=== PATIENT | female | born 1995 | race Caucasian/White ===

== ENCOUNTER 2018-10-02 14:10 | Emergency (ER) | payer OTHER ==
--- NOTE | 2018-10-02 14:46 | ER Document Report ---
ED Psych Disorder / Suicide <APONTEJENNIFER - Last Filed: 10/02/18 17:11> <KATHLEEN BACH - Last Filed: 10/02/18 17:23> - General Chief Complaint: Psych Problem Stated Complaint: PSYCH EVAL Time Seen by Provider: 10/02/18 14:32 Primary Care Provider: [facility] [Outside] - Follow up as needed PRETTY RAZO FNP [Primary Care Provider] - Follow up as needed Notes: Patient is here because she says she is hearing voices and they are telling her to hurt herself. She says these voices began about 3 or 4 months ago when her sister . Sister had a history of seizures and was in the bathtub and apparently drowned oral diet in some fashion from that. Patient says that she seldom has visual hallucinations, but sometimes feels someone tapping her on her shoulder and turns and there is no one there. Patient denies any history of mental illness. Says she is not under anyone's care and has not been in the past. Her only medical problems are asthma and thyroid disorder. (KATHLEEN AVILA) Past Medical History - Social History Smoking Status: Unknown if Ever Smoked Family History: Reviewed & Not Pertinent Pulmonary Medical History: Reports: Hx Asthma Endocrine Medical History: Reports: Hx Hypothyroidism <KATHLEEN BACH - Last Filed: 10/02/18 17:23> Review of Systems <KATHLEEN BACH - Last Filed: 10/02/18 17:23> - Review of Systems Notes: REVIEW OF SYSTEMS: CONSTITUTIONAL : Denies fever. EENT: Denies eye, ear, nose or mouth or throat pain or other symptoms. CARDIOVASCULAR: Denies chest pain. RESPIRATORY: Denies cough, chest congestion, or shortness of breath. GASTROINTESTINAL: Denies abdominal pain or nausea, vomiting, or diarrhea. GENITOURINARY: Denies difficulty or painful urinating, urinary frequency, blood in urine. MUSCULOSKELETAL: Denies back or neck pain. Denies joint pain or swelling. SKIN: Denies rash or skin lesions. NEUROLOGICAL: Denies LOC or altered mental status. Denies headache. Denies sensory loss or motor deficits. ALL OTHER SYSTEMS REVIEWED AND NEGATIVE. (KATHLEEN BACH) Physical Exam - Vital signs Interpretation: Normal <KATHLEEN BACH - Last Filed: 10/02/18 17:23> - Vital signs Vitals: Temp Pulse Resp BP Pulse Ox 98.0 F 72 17 122/67 100 10/02/18 15:11 10/02/18 15:11 10/02/18 15:11 10/02/18 15:11 10/02/18 15:11 Notes: PHYSICAL EXAMINATION: GENERAL: Well-appearing, in no acute distress. HEAD: Atraumatic, normocephalic. EYES: Pupils equal round and reactive to light, extraocular movements intact. ENT: oropharynx clear without exudates. Moist mucous membranes. NECK: Normal range of motion, supple. LUNGS: Breath sounds clear and equal bilaterally. HEART: Regular rate and rhythm without murmurs. ABDOMEN: Soft, nontender. No guarding or rebound. No masses. BACK: No tenderness throughout entire back. EXTREMITIES: Normal range of motion without pain. NEUROLOGICAL: Normal speech, normal gait. Normal sensory, motor, and reflex exams. Awake, alert, and oriented x3. Cranial nerves normal. PSYCH: Patient seems to be oriented. Answers questions appropriately. Denies current hallucinations. Cooperative and pleasant. SKIN: Warm, dry, no rashes. (KATHLEEN BACH) Course - Laboratory Result Diagrams: 10/02/18 15:18 10/02/18 15:18 <JENNIFER APONTE - Last Filed: 10/02/18 17:11> - Laboratory Result Diagrams: 10/02/18 15:18 10/02/18 15:18 <KATHLEEN BACH - Last Filed: 10/02/18 17:23> - Vital Signs Vital signs: Temp Pulse Resp BP Pulse Ox 98.0 F 72 17 122/67 100 10/02/18 15:11 10/02/18 15:11 10/02/18 15:11 10/02/18 15:11 10/02/18 15:11 - Laboratory Laboratory results interpreted by me: 10/02/18 10/02/18 10/02/18 15:18 15:18 15:18 Hct 34.6 L RDW 14.5 H AST 12 L TSH 13.00 H Salicylates < 1.0 L Acetaminophen < 10 L Discharge <JENNIFER APONTE - Last Filed: 10/02/18 17:11> <KATHLEEN BACH - Last Filed: 10/02/18 17:23> - Discharge Clinical Impression: Autism, Bereavement Condition: Stable Disposition: HOME, SELF-CARE Additional Instructions: You have been evaluated both medical and behavioral health teams and been deemed appropriate for discharge. You have provided prescription for Zoloft 25 mg daily; please take as directed. You are encouraged to follow-up with outpatient mental health services in the form of therapeutic intervention and follow-up with your primary primary care provider for medication management. Have been provided a local resource list of area providers including mobile crisis contact information. DEPRESSION: Your evaluation reveals that you have mental depression. While symptoms may be vague, they often include disturbance of sleep, fatigue, loss of appetite, and general loss of interest in life. While depression may be a side effect of drugs, or a reaction to a major change in your life, many cases have no known cause. If depression is acute, and related to a major loss in your life, you can expect it to clear completely with time. If you have been depressed a long time, are prone to repeated bouts of depression or low mood, or have been thinking of suicide, get help. Depression can be treated with anti-depressant medication and counselling. Long-term depression will often take a few weeks to clear, even with appropriate medication. Follow-up care is important. SUICIDAL IDEATION: Suicidal ideation is a common medical term for thoughts about suicide, which may be as detailed as a formulated plan, without the suicidal act itself. Although most people who undergo suicidal ideation do not commit suicide, some go on to make suicide attempts. The range of suicidal ideation varies greatly from fleeting to detailed planning, role playing, and unsuccessful attempts. While thoughts about suicide are common, most people do not carry out serious actions to commit suicide. Based upon your evaluation and discussion with you, we do not believe you are currently at risk to act upon your thoughts of suicide. You have agreed to return to the Emergency Department, at any time, if you feel inclined to act upon your suicidal thoughts. FOLLOW-UP CARE: If you experience worsening or a significant change in your symptoms, notify the physician immediately or return to the Emergency Department at any time for re- evaluation. Your thyroid function is very low. You are not taking your medications. You should see your primary care provider next week and get a prescription for your thyroid medication so that she can resume taking it every day. Prescriptions: Sertraline HCl [Zoloft] 25 mg PO DAILY #14 tablet Referrals: PRETTY RAZO FNP [Primary Care Provider] - Follow up as needed [facility] [Outside] - Follow up as needed
[2018-10-02 15:42] LABS: ABSOLUTE EOSINOPHILS # (AUTO) 0.3 10^3/uL (0.0-0.6); ABSOLUTE MONOCYTES (AUTO) 0.6 10^3/uL (0.1-1.4); ABSOLUTE NEUT (AUTO) 5.6 10^3/uL (1.7-8.2); BASOPHILS % (AUTO) 0.4 % (0-2); EOSINOPHILS % (AUTO) 3.3 % (0-6); HEMATOCRIT 34.6 % (36.0-47.0); HEMOGLOBIN 12.2 g/dL (12.0-15.5); LYMPHOCYTES % (AUTO) 23.4 % (13-45); MEAN CORPUSCULAR HEMOGLOBIN 30.5 pg (27.0-33.4); MEAN CORPUSCULAR HGB CONC 35.4 g/dL (32.0-36.0); MEAN CORPUSCULAR VOLUME 86 fl (80-97); MONOCYTES % (AUTO) 7.2 % (3-13); PLATELET COUNT 448 10^3/uL (150-450); RED BLOOD COUNT 4.01 10^6/uL (3.72-5.28); RED CELL DISTRIBUTION WIDTH 14.5 % (11.5-14.0); SEGMENTED NEUTROPHILS % (AUTO) 65.7 % (42-78); TOTAL CELLS COUNTED % (AUTO) 100 %; WHITE BLOOD COUNT 8.6 10^3/uL (4.0-10.5)
[2018-10-02 15:45] LABS: APPEARANCE,URINE SLIGHTLY-CLOUDY; BILIRUBIN,URINE NEGATIVE (NEGATIVE); COLOR,URINE STRAW; GLUCOSE, URINE NEGATIVE (NEGATIVE); KETONES,URINE NEGATIVE (NEGATIVE); LEUKOCYTE ESTERASE,URINE NEGATIVE (NEGATIVE); NITRITE,URINE NEGATIVE (NEGATIVE); PROTEIN,URINE NEGATIVE (NEGATIVE); URINE SPECIFIC GRAVITY 1.008; UROBILINOGEN,URINE NEGATIVE mg/dL (<2.0)
[2018-10-02 16:04] LABS: ALANINE AMINOTRANSFERASE 21 U/L (9-52); ALBUMIN 4.7 g/dL (3.5-5.0); ALKALINE PHOSPHATASE 49 U/L (38-126); ANION GAP 8 (5-19); ASPARTATE AMINO TRANSFERASE 12 U/L (14-36); BILIRUBIN,DIRECT 0.2 mg/dL (0.0-0.4); BILIRUBIN,TOTAL 0.3 mg/dL (0.2-1.3); BLOOD UREA NITROGEN 10 mg/dL (7-20); CALCIUM 9.6 mg/dL (8.4-10.2); CARBON DIOXIDE 27 mmol/L (22-30); CHLORIDE 106 mmol/L (98-107); GLUCOSE 77 mg/dL (75-110); POTASSIUM 4.3 mmol/L (3.6-5.0); SODIUM 140.9 mmol/L (137-145); TOTAL PROTEIN 7.6 g/dL (6.3-8.2)
[2018-10-02 16:05] LABS: ACETAMINOPHEN < 10 ug/mL (10-30); ALCOHOL < 10 mg/dL (NONE DETECTED); SALICYLATE < 1.0 mg/dL (2.0-20.0)
[2018-10-02 16:12] LABS: URINE AMPHETAMINES SCREEN NEGATIVE; URINE BARBITURATES SCREEN NEGATIVE; URINE BENZODIAZEPINES SCREEN NEGATIVE; URINE COCAINE SCREEN NEGATIVE; URINE MARIJUANA (THC) SCREEN NEGATIVE; URINE METHADONE SCREEN NEGATIVE; URINE PHENCYCLIDINE SCREEN NEGATIVE
[2018-10-02 16:17] VITALS: BP 122/67
[2018-10-02 16:31] LABS: FREE T4 (FREE THYROXINE) 0.83 ng/dL (0.78-2.19)
--- NOTE | 2018-10-02 16:36 | PSYCHOLOGICAL NOTE ---
Psych Note - Psych Note Date seen by psych provider: 10/02/18 Time seen by psych provider: 15:00 Psych Note: Medication recommendations per [facility]'s contracted psychiatrist Dr. Sunshine AUGUSTINE are as follows Zoloft 25 mg daily Impression\plan: Patient is cleared from acute psychiatric services. Patient does not meet IVC criteria per [place] GS 122C. Patient has existing diagnosis of autism and is currently suffering from bereavement. Is also noted patient witnessed the of her mother in 2009 and saw her sister's body in the tub after she . While patient discloses symptoms of both auditory and visual hallucinations currently patient's descriptions indicate these are more symptoms of her anxiety and her way of communicating her thoughts and feelings. Patient is recommended to follow-up with therapeutic intervention and her primary care provider for medication management. Dr. Kirkland was consulted and care management this patient; attending physicians in agreement with recommendations and disposition.
--- NOTE | 2018-10-02 22:59 | EKG REPORT ---
SEVERITY:- NORMAL ECG - SINUS RHYTHM : Confirmed by: Mili Berg MD 02-Oct-2018 22:59:09
== END 2018-10-02 17:47 | disposition home or self-care (01) ==
LOC: ER 14:10
DX: F84.0 Autistic disorder (principal); Z63.4 Disappearance and death of family member; R44.0 Auditory hallucinations
CPT/HCPCS: 36415; 80053; 80307; 81001; 84439; 84443; 84703; 85025; 93005; 93010; 99285